=== PATIENT | male | born 1985 | race Caucasian/White ===

== ENCOUNTER 2019-01-10 09:05 | Emergency (ER) | payer BC ==
[2019-01-10 10:04] VITALS: BP 141/92
--- NOTE | 2019-01-10 10:30 | UC ---
Dental HPI - HPI Summary HPI Summary: broke lower L molar months ago, has had intermittent pain, however over past week pain has increased, has been taking high dose ibuprofen w/o relief this am he awoke with swelling lower L jaw and intense toothache - History of Current Complaint Chief Complaint: UCDentalProblem Stated Complaint: DENTAL PAIN Time Seen by Provider: 01/10/19 10:02 Hx Obtained From: Patient Onset/Duration: Gradual Onset Severity: Severe Pain Intensity: 7 Aggravating Factor(s): Heat, Cold, Chewing Alleviating Factor(s): Nothing - Allergies/Home Medications Allergies/Adverse Reactions: Allergies Allergy/AdvReac Type Severity Reaction Status Date / Time bee venom protein (honey bee) Allergy anaph Verified 01/10/19 10:05 PMH/Surg Hx/FS Hx/Imm Hx Previously Healthy: Yes - Surgical History Surgical History: None - Family History Known Family History: Positive: None - REVIEWED & NONCONTRIBUTORY - Social History Occupation: Employed Full-time Lives: With Family Alcohol Use: Weekly Alcohol Amount: 2-3/wk Substance Use Type: Marijuana Substance Use Comment - Amount & Last Used: 04/12/15 Smoking Status (MU): Former Smoker Type: Cigarettes Have You Smoked in the Last Year: Yes When Did the Patient Quit Smoking/Using Tobacco: 09/20/2014 - Immunization History Most Recent Influenza Vaccination: never Most Recent Tetanus Shot: unk Most Recent Pneumonia Vaccination: never Review of Systems All Other Systems Reviewed And Are Negative: Yes Constitutional: Positive: Negative. Negative: Fever, Chills Skin: Positive: Negative. Negative: Rash Respiratory: Positive: Negative Cardiovascular: Positive: Negative Neurological: Positive: Negative. Negative: Headache Psychological: Positive: Negative Is Patient Immunocompromised?: No Physical Exam Triage Information Reviewed: Yes Appearance: Well-Appearing, Well-Nourished, Pain Distress - holding L lower jaw Vital Signs: Initial Vital Signs Temp 98.5 F 01/10/19 09:58 Pulse 74 01/10/19 09:58 Resp 16 01/10/19 09:58 BP 141/92 01/10/19 09:58 Pulse Ox 98 01/10/19 09:58 Vital Signs Reviewed: Yes Dental: Positive: Abscess @ - L lower, Other: - L lower molar broken at gum line Neck exam: Normal Neck: Positive: Supple, Nontender, No Lymphadenopathy Respiratory Exam: Normal Respiratory: Positive: Lungs clear Cardiovascular Exam: Normal Cardiovascular: Positive: RRR Neurological Exam: Normal Neurological: Positive: Alert Psychological Exam: Normal Dental Complaint Course/Dx - Differential Dx/Diagnosis Differential Diagnosis/Dx: Dental Abscess, Dental Caries, Fractured Tooth, Gingivitis Provider Diagnosis: Dental abscess Discharge ED - Sign-Out/Discharge Documenting (check all that apply): Patient Departure All imaging exams completed and their final reports reviewed: No Studies - Discharge Plan Condition: Good Disposition: HOME Prescriptions: Acetaminophen with Codeine [Acetaminophen-Cod #3 Tablet] 1 each PO Q4HR PRN #24 tablet MDD 8 PRN Reason: Pain - Severe Clindamycin Cap(NF) [Clindamycin Cap 300 mg Cap(NF)] 300 mg PO Q6H #40 cap Patient Education Materials: Dental Abscess (ED) Referrals: Shen Brady MD [Primary Care Provider] - Additional Instructions: Use your antibiotic and Tylenol #3 (codeine) as prescribed follow-up with dentist as soon as possible - Billing Disposition and Condition Condition: GOOD Disposition: Home
== END 2019-01-10 10:34 | disposition home or self-care (01) ==
LOC: UCEAST 09:05
DX: K04.7 Periapical abscess without sinus (principal); Z91.030 Bee allergy status; Z87.891 Personal history of nicotine dependence
CPT/HCPCS: 99212; G0463